=== PATIENT | male | born 1990 | race American Indian/Alaskan Native ===

== ENCOUNTER 2021-02-10 00:16 | Emergency (ER) | payer SELFPAY ==
[2021-02-10 01:57] LABS: Basophils % (Auto) 0.3 % (0.0-1.8); Eosinophils # (Auto) 0.1 K/mm3 (0.0-0.4); Eosinophils % (Auto) 1.7 % (0.0-4.3); Hematocrit 43.4 % (35.5-45.6); Hemoglobin 14.4 gm/dl (11.8-15.2); Lymphocytes # (Auto) 1.9 K/mm3 (1.2-5.4); Lymphocytes % (Auto) 36.7 % (13.4-35.0); Mean Corpuscular HGB Conc 33 % (32-34); Mean Corpuscular Volume 88 fl (84-94); Monocytes # (Auto) 0.4 K/mm3 (0.0-0.8); Platelet Count 178 K/mm3 (140-440); Red Blood Count 4.94 M/mm3 (3.65-5.03); Red Cell Distribution Width 12.3 % (13.2-15.2)
[2021-02-10 02:19] LABS: Alanine Aminotransferase 16 units/L (7-56); Albumin 4.7 g/dL (3.9-5); BUN/Creatinine Ratio 11; Blood Urea Nitrogen 12 mg/dL (9-20); Calcium 9.2 mg/dL (8.4-10.2); Hemolysis Index 11
[2021-02-10] MEDS ORDERED: DICYCLOMINE 20 MG TAB PO ONE (04:34)
[2021-02-10] MEDS ORDERED: FAMOTIDINE 20 MG TAB PO ONE (04:34)
[2021-02-10] MEDS ORDERED: ONDANSETRON 4 MG ODT TAB PO ONE (04:34)
--- NOTE | 2021-02-10 04:40 | Emergency Department Report ---
ED N/V/D HPI - General Chief complaint: Nausea/Vomiting/Diarrhea Stated complaint: 'BODY DOES NOT FEEL RIGHT" Source: patient Mode of arrival: Ambulatory Limitations: No Limitations - History of Present Illness Initial comments: Patient is a 30-year-old -[place] male with no past medical history presents to the ED with complaint of acute onset persistent intractable nausea and vomiting and epigastric pain for the last 4 hours after consuming marijuana laced cookies about 5 hours ago. Patient states that he went out with one of his girlfriends who gave him cookies which at the time he did not know was laced with marijuana. Patient states that he thereafter started having intractable nausea and vomiting and states that he has had up to ten episodes of nausea and vomiting prior to arrival in the ED. Patient states that his symptoms have been persistent and that he has never felt the symptoms before, stating that he had never used any marijuana prior to the episode tonight. Patient denies dizziness, syncope, loss of consciousness, chest pain, shortness of breath, fever, chills, diarrhea, dysuria, urinary frequency and urgency, testicular pain, headache, seizures, cough or hematemesis and hemoptysis. MD complaint: nausea, vomiting, abdominal pain (epigastric), other (ate marijuana cookies) -: Sudden, hour(s) (4) Description of Vomiting: food contents Associated Abdominal Pain: Yes (epigastric pain) Location: epigastric Radiation: none Severity: severe Pain Scale: 7 Quality: cramping, aching Consistency: intermittent Improves with: none Worsens with: vomiting Context: possible food poisoning, other (marijuana ) Associated Symptoms: denies other symptoms, nausea/vomiting. denies: myalgias, chest pain, cough, diaphoresis, fever/chills, headaches, loss of appetite, malaise, rash, shortness of breath, syncope, weakness - Related Data Previous Rx's Medication Instructions Recorded Last Taken Type Dicyclomine [Bentyl] 20 mg PO Q6H #24 tablet 02/10/21 Unknown Rx Famotidine [Pepcid] 20 mg PO BID #60 tablet 02/10/21 Unknown Rx Ondansetron [Zofran Odt] 4 mg PO Q8HR PRN #20 tab.rapdis 02/10/21 Unknown Rx Allergies Allergy/AdvReac Type Severity Reaction Status Date / Time No Known Allergies Allergy Unverified 02/10/21 00:49 ED Review of Systems ROS: Stated complaint: 'BODY DOES NOT FEEL RIGHT" Other details as noted in HPI Constitutional: denies: chills, fever Eyes: denies: eye pain, eye discharge, vision change ENT: denies: ear pain, throat pain Respiratory: denies: cough, shortness of breath, wheezing Cardiovascular: denies: chest pain, palpitations Endocrine: no symptoms reported Gastrointestinal: nausea, vomiting. denies: abdominal pain, diarrhea Genitourinary: denies: urgency, dysuria Musculoskeletal: denies: back pain, joint swelling, arthralgia Skin: denies: rash, lesions Neurological: denies: headache, weakness, paresthesias Psychiatric: denies: anxiety, depression Hematological/Lymphatic: denies: easy bleeding, easy bruising ED Past Medical Hx - Past Medical History Previous Medical History?: No - Surgical History Past Surgical History?: No - Medications Home Medications: Home Medications Medication Instructions Recorded Confirmed Last Taken Type Dicyclomine [Bentyl] 20 mg PO Q6H #24 tablet 02/10/21 Unknown Rx Famotidine [Pepcid] 20 mg PO BID #60 tablet 02/10/21 Unknown Rx Ondansetron [Zofran Odt] 4 mg PO Q8HR PRN #20 tab.rapdis 02/10/21 Unknown Rx ED Physical Exam - General Limitations: No Limitations General appearance: alert, in no apparent distress - Head Head exam: Present: atraumatic, normocephalic, normal inspection - Eye Eye exam: Present: normal appearance, PERRL, EOMI Pupils: Present: normal accommodation - ENT ENT exam: Present: normal exam, normal orophraynx, mucous membranes moist, TM's normal bilaterally, normal external ear exam - Neck Neck exam: Present: normal inspection, full ROM - Respiratory Respiratory exam: Present: normal lung sounds bilaterally. Absent: respiratory distress, wheezes, rales, rhonchi, stridor, chest wall tenderness, accessory muscle use, decreased breath sounds, prolonged expiratory - Cardiovascular Cardiovascular Exam: Present: regular rate, normal rhythm, normal heart sounds. Absent: systolic murmur, diastolic murmur, rubs, gallop - GI/Abdominal GI/Abdominal exam: Present: soft, normal bowel sounds. Absent: tenderness, guarding, rebound, hyperactive bowel sounds, hypoactive bowel sounds, organomegaly - Extremities Exam Extremities exam: Present: normal inspection, full ROM, normal capillary refill - Back Exam Back exam: Present: normal inspection, full ROM. Absent: tenderness, CVA tenderness (R), CVA tenderness (L), muscle spasm, paraspinal tenderness, vertebral tenderness - Neurological Exam Neurological exam: Present: alert, oriented X3, CN II-XII intact, normal gait, reflexes normal - Psychiatric Psychiatric exam: Present: normal affect, normal mood - Skin Skin exam: Present: warm, dry, intact, normal color. Absent: rash ED Course Vital Signs 02/10/21 02/10/21 00:50 05:10 Temperature 98.4 F 98.2 F Pulse Rate 89 89 Respiratory 18 16 Rate Blood Pressure 128/73 Blood Pressure 112/50 [Left] O2 Sat by Pulse 100 100 Oximetry ED Medical Decision Making - Lab Data Result diagrams: 02/10/21 01:08 02/10/21 01:08 - Medical Decision Making This is a 30-year-old -L[place] male with no past medical history presents to the ED with complaint of acute onset persistent intractable nausea and vomiting and epigastric pain for the last 4 hours after consuming marijuana laced cookies about 5 hours ago. Patient states that he went out with one of his girlfriends who gave him cookies which at the time he did not know was laced with marijuana. Patient states that he thereafter started having intractable nausea and vomiting and states that he has had up to ten episodes of nausea and vomiting prior to arrival in the ED. Patient states that his symptoms have been persistent and that he has never felt the symptoms before, stating that he had never used any marijuana prior to the episode tonight. In the ED, patient is alert and oriented x3 and is not in any distress. Patient was treated for nausea and vomiting in the ED and was given antacids and pain medications. On reevaluation, patient felt better, nausea and vomiting resolved as well as pain. Patient passed oral fluid challenge in the ED and was discharged home on prescriptions of antacids, antiemetics and antispasmodics. Patient was advised to maintain a clear liquid diet for 12 to 24 hours and to follow-up with his primary care physician in 3 to 5 days for reevaluation or return to the ED immediately if symptoms get worse. - Differential Diagnosis Gastritis; GERD; Gastroenteritis; Dehydration; marijuana abuse Critical care attestation.: If time is entered above; I have spent that time in minutes in the direct care of this critically ill patient, excluding procedure time. ED Disposition Clinical Impression: Nausea and vomiting in adult patient, Viral gastroenteritis, Marijuana abuse GERD (gastroesophageal reflux disease) Qualifiers: Esophagitis presence: esophagitis presence not specified Qualified Code(s): K21.9 - Gastro-esophageal reflux disease without esophagitis Disposition: TO HOME OR SELFCARE Is pt being admited?: No Does the pt Need Aspirin: No Condition: Stable Instructions: Viral Gastroenteritis, Adult, [id number], Nausea and Vomiting, Adult, [id number], Gastroesophageal Reflux Disease, Adult, [id number], Cannabinoid Hyperemesis Syndrome Additional Instructions: All lab test results were reviewed and are all nonactionable. Therefore maintain a clear liquid diet for the next 24-48 hours and take medications, drink plenty of fluids and follow up ith your Primary Care Physician in 3-5 days for reevaluation. Prescriptions: Dicyclomine [Bentyl] 20 mg PO Q6H #24 tablet Famotidine [Pepcid] 20 mg PO BID #60 tablet Ondansetron [Zofran Odt] 4 mg PO Q8HR PRN #20 tab.rapdis PRN Reason: Nausea Referrals: [facility] [Provider Group] - 3-5 Days Time of Disposition: 04:43 Print Language: SURINAMESE
[2021-02-10 05:42] VITALS: BP 112/50
== END 2021-02-10 05:42 | disposition home or self-care (01) ==
LOC: ED 00:16
DX: A08.4 Viral intestinal infection, unspecified (principal); K21.9 Gastro-esophageal reflux disease without esophagitis; F15.10 Other stimulant abuse, uncomplicated; Z79.899 Other long term (current) drug therapy
CPT/HCPCS: 36415; 80053; 85025; 99283; Q0162